=== PATIENT | female | born 1990 ===

== ENCOUNTER 2017-05-26 02:05 | Emergency (ER) | payer MEDICAID, OTHER ==
--- NOTE | 2017-05-26 03:06 | C.PDOC ---
History Of Present Illness 26 year old female presents to the ED c/o pain and swelling to her left ankle. Patient reports she slipped and fell on ice water at a bar prior to arrival. Patient denies LOC, headache, head injury, weakness, numbness. Time Seen by Provider: 05/26/17 02:25 Chief Complaint (Nursing): Lower Extremity Problem/Injury History Per: Patient History/Exam Limitations: no limitations Onset/Duration Of Symptoms: Hrs Current Symptoms Are (Timing): Still Present Recent travel outside of the [place]: No Additional History Per: Patient - Ankle/Foot Description Of Injury: Fell, Twisted Currently Unable To: Bend Or Move Past Medical History Reviewed: Historical Data, Nursing Documentation, Vital Signs Vital Signs: Last Vital Signs Temp 97.5 F L 05/26/17 03:36 Pulse 84 05/26/17 03:36 Resp 20 05/26/17 03:36 BP 124/82 05/26/17 03:36 Pulse Ox 96 05/26/17 03:36 - Medical History PMH: Asthma Surgical History: No Surg Hx - [facility] Procedures PRESSURE DRESSING APPLIC (03/18/13) Family History: States: Unknown Family Hx - Social History Hx Tobacco Use: Yes Hx Alcohol Use: No Hx Substance Use: No - Immunization History Hx Tetanus Toxoid Vaccination: No Hx Influenza Vaccination: Yes Hx Pneumococcal Vaccination: No Review Of Systems Constitutional: Negative for: Fever, Chills Respiratory: Negative for: Shortness of Breath Gastrointestinal: Negative for: Abdominal Pain Musculoskeletal: Positive for: Foot Pain. Negative for: Back Pain Skin: Negative for: Rash Neurological: Negative for: Headache, Dizziness Physical Exam - Physical Exam Appears: Non-toxic, No Acute Distress Skin: Normal Color, Warm, Dry Head: Atraumatic, Normacephalic Eye(s): bilateral: Normal Inspection Nose: No Discharge Oral Mucosa: Moist Neck: Normal ROM, Supple Extremity: Normal ROM, Tenderness (left lateral malleolus), Capillary Refill (< 2 seconds), No Deformity, Swelling (left lateral malleolus) Pulses: Left Dorsalis Pedis: Normal, Right Dorsalis Pedis: Normal Neurological/Psych: Oriented x3, Normal Motor, Normal Sensation Gait: Other (with a limp due to pain) ED Course And Treatment O2 Sat by Pulse Oximetry: 99 (On RA) Pulse Ox Interpretation: Normal - Other Rad Left ankle X-Ray X-Ray: Interpreted by Me, Viewed By Me Interpretation: No fracture or dislocation seen Progress Note: Plan: - Motrin 600 mg PO. - Left ankle X-Ray. An Graeme wrap was applied and crutches were given with crutch walking instructions. Patient was advised to follow up with PMD and ortho for further evaluation. Reevaluation Time: 03:28 Reassessment Condition: Improved Disposition Counseled Patient/Family Regarding: Diagnosis, Need For Followup, Rx Given - Disposition Referrals: Podiatry Clinic [Outside] Disposition: HOME/ ROUTINE Disposition Time: 03:20 Condition: STABLE Additional Instructions: Take motrin for pain Leg elevation Apply ICE Follow up with Podiatry Return to ER if worse Prescriptions: Ibuprofen [Motrin] 600 mg PO Q6H #24 tab Instructions: Ankle Sprain (DC) Forms: [employer] (Vincentian), Work Excuse - Clinical Impression Clinical Impression: Left ankle sprain - PA / FRONT SERVICES AGENT / Resident Statement MD/DO has reviewed & agrees with the documentation as recorded. - Scribe Statement The provider has reviewed the documentation as recorded by the Scribe Raul Osullivan All medical record entries made by the Scribtashi were at my direction and personally dictated by me. I have reviewed the chart and agree that the record accurately reflects my personal performance of the history, physical exam, medical decision making, and the department course for this patient. I have also personally directed, reviewed, and agree with the discharge instructions and disposition.
[2017-05-26 03:37] VITALS: BP 124/82; PULSE 84; RESP 20; TEMP 97.5
[2017-05-26 03:49] VITALS: O2SAT 99
--- NOTE | 2017-05-26 08:32 | RAD ---
PROCEDURE: Left Ankle Radiographs. HISTORY: rosie, swelling, lat malleolus COMPARISON: None FINDINGS: BONES: Normal. No fracture. JOINTS: Possible small joint effusion noted in the lateral view. . No osteoarthritis. Ankle mortise maintained. Talar dome intact SOFT TISSUES: Mild soft tissue swelling seen adjacent to the lateral malleolus. OTHER FINDINGS: None. IMPRESSION: Soft tissue swelling. Possible small joint effusion. No radiographic evidence of acute fracture.
== END 2017-05-26 03:38 | disposition home or self-care (01) ==
LOC: C.ER 02:05
DX: S93.402A Sprain of unspecified ligament of left ankle, initial encounter (principal); W01.0XXA Fall on same level from slipping, tripping and stumbling without subsequent striking against object, initial encounter; Y92.29 Other specified public building as the place of occurrence of the external cause

== ENCOUNTER 2017-08-21 21:29 | Emergency (ER) | payer MEDICAID ==
[2017-08-21 21:41] VITALS: BP 135/90; PULSE 83; RESP 20; TEMP 98.1; O2SAT 100
[2017-08-21] MEDS ORDERED: Albuterol 0.083% Inhal Sol (2.5 mg/3 mL) UD ONE (22:05)
[2017-08-21] MEDS: Albuterol 0.083% Inhal Sol (2.5 mg/3 mL) UD INH SCH ×2 (22:07→22:20)
--- NOTE | 2017-08-21 22:46 | C.PDOC ---
History Of Present Illness 26 year old female presents to the ER with a complaint of cough and chest congestion for the past 4 days that has now developed into chest tightness and SOB. Patient states she has a Hx of asthma and has an inhaler at home but has not used it. Denies chest pain, nausea, vomiting, or fever. Time Seen by Provider: 08/21/17 21:45 Chief Complaint (Nursing): Cough, Cold, Congestion History Per: Patient History/Exam Limitations: no limitations Current Symptoms Are (Timing): Still Present Associated Symptoms: Cough, Other ((+) chest congestion, SOB (-) chest pain). denies: Fever, Chills, Nausea, Vomiting Recent travel outside of the [place]: No Past Medical History Reviewed: Historical Data, Nursing Documentation, Vital Signs Vital Signs: Last Vital Signs Temp 98.1 F 08/21/17 21:37 Pulse 83 08/21/17 21:37 Resp 20 08/21/17 21:37 BP 135/90 08/21/17 21:37 Pulse Ox 100 08/21/17 22:47 - Medical History PMH: Asthma - [facility] Procedures PRESSURE DRESSING APPLIC (03/18/13) Family History: States: Unknown Family Hx - Social History Hx Tobacco Use: Yes Hx Alcohol Use: No Hx Substance Use: No - Immunization History Hx Tetanus Toxoid Vaccination: No Hx Influenza Vaccination: Yes Hx Pneumococcal Vaccination: No Review Of Systems Constitutional: Negative for: Fever, Chills Cardiovascular: Negative for: Chest Pain Respiratory: Positive for: Shortness of Breath, Other (Chest congestion, Chest tightness) Gastrointestinal: Negative for: Nausea, Vomiting Physical Exam - Physical Exam Appears: Non-toxic Skin: Normal Color, Warm, Dry Head: Atraumatic, Normacephalic Eye(s): bilateral: Normal Inspection Ear(s): Bilateral: Normal Oral Mucosa: Moist Throat: Normal, No Erythema, No Exudate Neck: Normal, Supple Chest: Symmetrical, No Tenderness Cardiovascular: Rhythm Regular Respiratory: No Rales, Rhonchi (Scattered), Wheezing (Scattered expiratory) Neurological/Psych: Oriented x3, Normal Speech ED Course And Treatment O2 Sat by Pulse Oximetry: 100 (Room air) Pulse Ox Interpretation: Normal Progress Note: Albuterol nebulizer and prednisone administered. On reevaluation , patient is resting comfortably in the ER in no acute respiratory distress with clear breath sounds, vitals are stable. Will discharge home with Rx and instructions to follow up with PMD or return if symptoms worsen. Disposition Counseled Patient/Family Regarding: Diagnosis, Need For Followup, Rx Given - Disposition Referrals: [facility] [Outside] Disposition: HOME/ ROUTINE Disposition Time: 22:43 Condition: STABLE Additional Instructions: Please follow up with PMD Take medications as directed Use albuterol inhaler as needed Return to ER if worse Prescriptions: Benzonatate [Tessalon Perles] 100 mg PO TID #20 sgl predniSONE [Prednisone] 40 mg PO DAILY #8 tab Instructions: Asthma, Adult (DC) Forms: [employer] (Georgian) - Clinical Impression Clinical Impression: Upper respiratory infection, Bronchospasm - PA / PROGRAM/MUSIC DIRECTOR / Resident Statement MD/DO has reviewed & agrees with the documentation as recorded. - Scribe Statement The provider has reviewed the documentation as recorded by the Scribe Miguelito Vance All medical record entries made by the Scribe were at my direction and personally dictated by me. I have reviewed the chart and agree that the record accurately reflects my personal performance of the history, physical exam, medical decision making, and the department course for this patient. I have also personally directed, reviewed, and agree with the discharge instructions and disposition.
== END 2017-08-21 22:52 | disposition home or self-care (01) ==
LOC: C.ER 21:29
DX: J06.9 Acute upper respiratory infection, unspecified (principal); J98.01 Acute bronchospasm

== ENCOUNTER 2018-07-08 14:07 | Emergency (ER) | payer MEDICAID ==
[2018-07-08 14:22] VITALS: BMI 38.3
[2018-07-08 14:26] VITALS: O2SAT 96
--- NOTE | 2018-07-08 14:40 | C.PDOC ---
History Of Present Illness 27 year old female presents to ED with complaint of sore throat, fever, and chills since yesterday. Patient reports that her fever was at 100.1. 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 She is concerned that she might have strep throat. Patient also complains of bodyaches and has a post-nasal drip that has been making her cough. She states that she took Tylenol last night and nothing today. She has been tolerating food and drink well. She denies chest congestion, SOB, headache, vomiting, and diarrhea. No abdominal pain or urinary symptoms. No other complaints at this time. Time Seen by Provider: 07/08/18 14:27 Chief Complaint (Nursing): ENT Problem History Per: Patient History/Exam Limitations: no limitations Onset/Duration Of Symptoms: Days (1) Current Symptoms Are (Timing): Still Present Past Medical History Reviewed: Historical Data, Nursing Documentation, Vital Signs Vital Signs: Last Vital Signs Temp 100.1 F H 07/08/18 14:22 Pulse 105 H 07/08/18 14:22 Resp 20 07/08/18 14:22 BP 131/88 07/08/18 14:22 Pulse Ox 96 07/08/18 14:22 Primary Care Provider: Iesha Lamb - Medical History PMH: Asthma Surgical History: No Surg Hx - [facility] Procedures PRESSURE DRESSING APPLIC (03/18/13) Family History: States: Unknown Family Hx - Social History Hx Tobacco Use: Yes Hx Alcohol Use: No Hx Substance Use: No - Immunization History Hx Tetanus Toxoid Vaccination: No Hx Influenza Vaccination: Yes Hx Pneumococcal Vaccination: No Review Of Systems Except As Marked, All Systems Reviewed And Found Negative. Constitutional: Positive for: Fever, Chills, Malaise ENT: Positive for: Throat Pain Physical Exam - Physical Exam Appears: Well, Non-toxic, No Acute Distress Skin: Normal Color, Warm, Dry Head: Atraumatic, Normacephalic Eye(s): bilateral: Normal Inspection Ear(s): Bilateral: Normal Nose: Normal, No Discharge Oral Mucosa: Moist Throat: No Exudate, Other (posterior pharynx and tonsills injected, no swelling, uvula midline) Neck: Normal ROM, Supple Lymphatic: Other (mild anterior cervical lymphadenopathy) Chest: Symmetrical, No Deformity Cardiovascular: Rhythm Regular, No Murmur Respiratory: No Accessory Muscle Use, No Rales, No Rhonchi, No Wheezing Extremity: Normal ROM Extremity: Bilateral: Atraumatic Neurological/Psych: Oriented x3, Normal Speech, Normal Cognition ED Course And Treatment O2 Sat by Pulse Oximetry: 96 (in RA) Pulse Ox Interpretation: Normal Medical Decision Making Medical Decision Making: Impression:27 year old female presents to ED with complaint of sore throat, fever, and chills since yesterday. Initial Plan: Motrin PO Rapid strep throat culture Rapid strep- negative Patient instructed symptoms may be viral in nature. Will take motrin and/or tylenol for fevers and pain. Advised to continue cold fluids. Will write rx for antibiotic but encouraged patient to hold taking antibiotic and will only begin taking if remains with fever and pain to the throat. Will follow-up with PMD and ENT. Will return with any worsening symptoms. Disposition Counseled Patient/Family Regarding: Studies Performed, Diagnosis, Need For Followup, Rx Given - Disposition Referrals: FAMILY PROVIDER,JOHN [Family Provider] - Agustin Blancas MD [Staff Provider] - Disposition: HOME/ ROUTINE Disposition Time: 15:56 Condition: GOOD Additional Instructions: Follow-up with PMD and ENT. Return if symptoms worsen or persist. Prescriptions: Amoxicillin [Amoxil 500 mg Cap] 500 mg PO BID 10 Days #20 cap Ibuprofen [Motrin Tab] 800 mg PO TID #20 tab Instructions: Sore Throat in Adults Forms: [facility] (Occitan), Work Excuse Print Language: [id number] - Clinical Impression Clinical Impression: Viral pharyngitis - PA / NUTRITION THERAPIST / Resident Statement MD/DO has reviewed & agrees with the documentation as recorded. (Romi De) - Scribe Statement The provider has reviewed the documentation as recorded by the Scribe (Romi De) All medical record entries made by the Scribe were at my direction and personally dictated by me. I have reviewed the chart and agree that the record accurately reflects my personal performance of the history, physical exam, medical decision making, and the department course for this patient. I have also personally directed, reviewed, and agree with the discharge instructions and disposition.
[2018-07-08 16:06] VITALS: BP 112/77; PULSE 84; RESP 16; TEMP 98.7
== END 2018-07-08 16:06 | disposition home or self-care (01) ==
LOC: C.ER 14:07
DX: J02.9 Acute pharyngitis, unspecified (principal); Z72.0 Tobacco use